=== PATIENT | female | born 1980 | race Caucasian/White ===

== ENCOUNTER 2020-06-09 13:23 | Emergency (ER) | payer MEDICAID, OTHER ==
[~2020-06-09] VITALS: Ht 170.2 cm; Wt 55.0 kg
[~2020-06-09 13:23] MED LIST: CYCL-1 PO; DIAZ-351 PO; DULO20CA50 PO; HYDR-3965 PO; HYDR-4353 PO; HYDR-4383 PO; IBUP-1984 PO; IBUP-1985 PO; MELO7.5T12 PO; NEOM28OI31 TOP; NORCO10T PO; ONDA4TAB12 PO; ONDA4TAB6 PO; OXYC-134 PO; PANT-47 PO; PANT40TA39 PO; ZOF4T PO
[2020-06-09 13:39] VITALS: BP 120/57
== END 2020-06-09 17:00 | disposition home or self-care (01) ==
LOC: ER 13:24
DX: M25.552 Pain in left hip (principal); M79.601 Pain in right arm; R11.0 Nausea; G89.29 Other chronic pain; Z98.890 Other specified postprocedural states; Z91.018 Allergy to other foods; Z88.8 Allergy status to other drugs, medicaments and biological substances; Z79.899 Other long term (current) drug therapy
CPT/HCPCS: 99281

== ENCOUNTER → 2021-01-10 | Emergency (ER) | payer SELFPAY ==
[~2021-01-10] VITALS: Ht 167.6 cm; Wt 61.4 kg
[2021-01-10 14:43] LABS: BASOPHILS % (AUTO) 0.6 % (0-1); EOSINOPHILS # (AUTO) 0.3 X10'3 (0-0.9); EOSINOPHILS % (AUTO) 4.7 % (0-6); HEMATOCRIT 37.4 % (35.0-45.0); HEMOGLOBIN 12.7 g/dl (12.0-16.0); LYMPHOCYTES # (AUTO) 2.2 X10'3 (1.1-4.8); LYMPHOCYTES % (AUTO) 34.1 % (21-51); MEAN CORPUSCULAR HEMOGLOBIN 32.8 PG (27.0-31.0); MEAN CORPUSCULAR VOLUME 96.4 FL (78-98); MEAN PLATELET VOLUME 6.5 FL (7.4-10.4); MONOCYTES # (AUTO) 0.6 X10'3 (0-0.9); MONOCYTES % (AUTO) 8.7 % (2-12); NEUTROPHILS # (AUTO) 3.4 X10'3 (1.8-7.7); NEUTROPHILS % (AUTO) 51.9 % (42-75); PLATELET COUNT 234 X10'3 (140-440); RED BLOOD COUNT 3.88 X10'6 (4.20-5.60); RED CELL DISTRIBUTION WIDTH 12.7 % (11.5-14.5); WHITE BLOOD COUNT 6.5 X10'3 (4.5-11.0)
[2021-01-10 15:00] LABS: ALANINE AMINOTRANSFERASE 37 U/L (12-78); ALBUMIN 3.4 G/DL (3.4-5.0); ALBUMIN/GLOBULIN RATIO 1.1 (1.1-1.5); ALKALINE PHOSPHATASE 53 IU/L (46-116); ANION GAP 8 (8-16); ASPARTATE AMINO TRANSFERASE 22 U/L (10-37); BILIRUBIN,TOTAL 0.2 MG/DL (0.1-1.0); BLOOD UREA NITROGEN 14 MG/DL (7-18); BUN/CREATININE RATIO 22.6 (6.6-38.0); CALCIUM 7.9 MG/DL (8.5-10.1); CHLORIDE 107 MMOL/L (99-107); CREATININE 0.62 MG/DL (0.40-0.90); GLUCOSE 95 MG/DL (70-104); SODIUM 142 MMOL/L (135-145); TOTAL PROTEIN 6.5 G/DL (6.4-8.2); eGFR > 90 ML/MIN
--- NOTE | 2021-01-10 16:28 | NUR ---
PT AMB WITH STEADY GAIT TO FAST TRACK
[2021-01-10 16:49] VITALS: BP 109/76
== END | disposition home or self-care (01) ==
LOC: ER 14:17
DX: R00.2 Palpitations (principal); R07.89 Other chest pain; R06.02 Shortness of breath; G89.29 Other chronic pain; Z98.890 Other specified postprocedural states; Z72.89 Other problems related to lifestyle; Z91.013 Allergy to seafood; Z88.8 Allergy status to other drugs, medicaments and biological substances; Z79.899 Other long term (current) drug therapy
CPT/HCPCS: 36415; 71045; 80053; 84484; 85025; 93005; 99285

== ENCOUNTER 2023-11-05 11:05 | Emergency (ER) | payer MEDICAID ==
[~2023-11-05] VITALS: Ht 170.2 cm; Wt 70.0 kg
[2023-11-05] MEDS ORDERED: ONDA4TAB12 PO (13:23)
[2023-11-05] MEDS: ondansetron 4mg rapidly disintigrating tab PO ONE (13:32)
[2023-11-05] MEDS: bacitracin 15gm ointment TP ONE (13:32)
[2023-11-05] MEDS: TETanus/Pertussis (Acell)/Diphther VAC/PF (Tdap-Adult) 0.5ml syringe IMVAC ONE (13:33)
[2023-11-05 13:36] VITALS: BP 122/78; PULSE 80; RESP 16; TEMP 97.7; O2SAT 98
== END 2023-11-05 13:46 | disposition home or self-care (01) ==
LOC: ER 11:06
DX: S09.8XXA Other specified injuries of head, initial encounter (principal); Z98.890 Other specified postprocedural states; Z79.2 Long term (current) use of antibiotics; W01.0XXA Fall on same level from slipping, tripping and stumbling without subsequent striking against object, initial encounter; Y93.89 Activity, other specified; Y92.89 Other specified places as the place of occurrence of the external cause; Y99.8 Other external cause status
CPT/HCPCS: 70450; 90715; 99284

== ENCOUNTER 2024-04-21 15:51 | Emergency (ER) | payer MEDICAID ==
[~2024-04-21] VITALS: Ht 170.2 cm; Wt 65.0 kg
[~2024-04-21 15:51] MED LIST changes: +ONDA-243 PO; -ONDA4TAB12 PO
[2024-04-21 15:52] VITALS: BP 125/84; PULSE 91; RESP 16; TEMP 98.4; O2SAT 99
[2024-04-21] MEDS ORDERED: SILV50CR31 TOP (16:43)
[2024-04-21] MEDS ORDERED: CEPH-585 PO (16:43)
[2024-04-21] MEDS: TETanus/Pertussis (Acell)/Diphther VAC/PF (Tdap-Adult) 0.5ml syringe IMVAC ONE (17:07)
[2024-04-21] MEDS ORDERED: ONDA-243 PO (17:12)
[2024-04-21] MEDS: ondansetron 4mg rapidly disintigrating tab PO ONE (17:22)
== END 2024-04-21 17:26 | disposition home or self-care (01) ==
LOC: ER 15:51
DX: T23.201A Burn of second degree of right hand, unspecified site, initial encounter (principal); Z91.013 Allergy to seafood; Z88.8 Allergy status to other drugs, medicaments and biological substances; Z79.2 Long term (current) use of antibiotics; Z79.899 Other long term (current) drug therapy; X10.2XXA Contact with fats and cooking oils, initial encounter; Y93.89 Activity, other specified; Y92.89 Other specified places as the place of occurrence of the external cause; Y99.8 Other external cause status
CPT/HCPCS: 90471; 90715; 99283

== ENCOUNTER 2024-05-29 23:13 | Emergency (ER) | payer MEDICAID ==
[~2024-05-29] VITALS: Ht 170.2 cm; Wt 65.0 kg
[2024-05-30] MEDS ORDERED: BACI28.42 TOP (00:50)
[2024-05-30] MEDS ORDERED: bacitracin 15gm ointment TP ONE (00:50)
[2024-05-30] MEDS ORDERED: oxyCODONE/APAP 10/325mg tablet PO ONE (00:50)
[2024-05-30] MEDS ORDERED: OXYC-145 PO (00:50)
[2024-05-30] MEDS: oxyCODONE/APAP 10/325mg tablet PO ONE (01:27)
[2024-05-30] MEDS: bacitracin 15gm ointment TP ONE (01:27)
[2024-05-30 01:29] VITALS: BP 131/80; PULSE 71; RESP 16; TEMP 98.6; O2SAT 100
[2024-06-02] MEDS ORDERED: OXYC-145 PO (14:56)
[2024-06-02] MEDS ORDERED: SILV20CR13 TOP (14:56)
[2024-06-02] MEDS ORDERED: NAPR-56 PO (14:56)
[2024-06-02] MEDS ORDERED: PER5325T PO (16:21)
== END 2024-05-30 01:33 | disposition home or self-care (01) ==
LOC: ER 23:15
DX: T21.22XA Burn of second degree of abdominal wall, initial encounter (principal); G89.29 Other chronic pain; M54.9 Dorsalgia, unspecified; F17.210 Nicotine dependence, cigarettes, uncomplicated; F10.90 Alcohol use, unspecified, uncomplicated; Z88.8 Allergy status to other drugs, medicaments and biological substances; Z91.048 Other nonmedicinal substance allergy status; Z79.899 Other long term (current) drug therapy; Z79.891 Long term (current) use of opiate analgesic; Z79.1 Long term (current) use of non-steroidal anti-inflammatories (NSAID); Z98.890 Other specified postprocedural states; X08.8XXA Exposure to other specified smoke, fire and flames, initial encounter; Y93.89 Activity, other specified; Y92.89 Other specified places as the place of occurrence of the external cause; Y99.8 Other external cause status
CPT/HCPCS: 16000; 99283

== ENCOUNTER 2024-06-06 08:09 | Emergency (ER) | payer MEDICAID ==
[~2024-06-06 08:09] MED LIST changes: +BACI28.42 TOP; +NAPR-56 PO; +OXYC-145 PO; +PER5325T PO; +SILV20CR13 TOP
== END 2024-06-06 09:12 | disposition left against medical advice (07) ==
LOC: ER 08:10
DX: R10.9 Unspecified abdominal pain (principal); Z53.21 Procedure and treatment not carried out due to patient leaving prior to being seen by health care provider

== ENCOUNTER 2024-06-08 15:24 | Emergency (ER) | payer MEDICAID ==
[~2024-06-08] VITALS: Ht 170.2 cm; Wt 57.0 kg
[2024-06-08 18:02] VITALS: BP 101/61; PULSE 72; RESP 16; O2SAT 99
[2024-06-08 18:03] VITALS: TEMP 98
== END 2024-06-08 18:04 | disposition home or self-care (01) ==
LOC: ER 15:25
DX: T21.22XD Burn of second degree of abdominal wall, subsequent encounter (principal); G89.29 Other chronic pain; M54.9 Dorsalgia, unspecified; F10.90 Alcohol use, unspecified, uncomplicated; Z98.890 Other specified postprocedural states; Z79.899 Other long term (current) drug therapy; Z79.1 Long term (current) use of non-steroidal anti-inflammatories (NSAID); Z88.8 Allergy status to other drugs, medicaments and biological substances; Z91.018 Allergy to other foods
CPT/HCPCS: 99281; A6258

== ENCOUNTER 2024-11-11 12:14 | Emergency (ER) | payer MEDICAID ==
[~2024-11-11] VITALS: Ht 170.2 cm; Wt 65.9 kg
[~2024-11-11 12:14] MED LIST changes: -NAPR-56 PO; -PER5325T PO
[2024-11-11 12:21] VITALS: BP 104/80; PULSE 94; RESP 18; TEMP 99.5; O2SAT 99
[2024-11-11] MEDS ORDERED: NAPR-56 PO (14:13)
== END 2024-11-11 14:22 | disposition home or self-care (01) ==
LOC: ER 12:14
DX: M79.641 Pain in right hand (principal); G89.29 Other chronic pain; M54.9 Dorsalgia, unspecified; F17.200 Nicotine dependence, unspecified, uncomplicated; Z88.8 Allergy status to other drugs, medicaments and biological substances; Z91.018 Allergy to other foods; Z79.1 Long term (current) use of non-steroidal anti-inflammatories (NSAID); Z79.899 Other long term (current) drug therapy; Z98.890 Other specified postprocedural states; W18.39XA Other fall on same level, initial encounter; Y93.89 Activity, other specified; Y92.89 Other specified places as the place of occurrence of the external cause; Y99.8 Other external cause status
CPT/HCPCS: 73130; 99283